=== PATIENT | female | born 1980 | race Two or more races ===

== ENCOUNTER 2018-05-29 11:32 | Emergency (ER) | payer OTHER ==
--- NOTE | 2018-05-29 12:34 | ED Physician Documentation ---
History of Present Illness - Stated complaint Stated Complaint: HIGH BP - Chief complaint Chief Complaint: Cardiac - History obtained from History obtained from: Patient - History of Present Illness Timing: Today (She had not seen a doctor for about 5 years. Previously though she has had significant elevated blood pressure readings but it was never treated. She saw a new physician last week and was told it was a bit high but she does not know what the number was. She went for her IUD changed today and it was quite elevated in the office and she was referred to the emergency department. She denies chest pain, trouble breathing, urinary complaints, pedal edema, strokelike symptoms or headache.) Review of Systems Constitutional: denies: Fever, Chills Cardiac: denies: Chest pain / pressure, Palpitations Respiratory: denies: Dyspnea, Cough GI: denies: Abdominal Pain PD PAST MEDICAL HISTORY - Present Medications Home Medications: Ambulatory Orders Medication Instructions Recorded Confirmed Sertraline [Zoloft] 25 mg PO DAILY 05/29/18 05/29/18 amLODIPine [Norvasc] 10 mg PO DAILY #30 tablet 05/29/18 - Allergies Allergies/Adverse Reactions: Allergies Allergy/AdvReac Type Severity Reaction Status Date / Time Penicillins Allergy Unknown Verified 05/29/18 11:47 PD ED PE NORMAL - Vitals Vital signs reviewed: Yes - General General: Alert and oriented X 3, No acute distress - HEENT HEENT: PERRL, EOMI - Neck Neck: Supple, no meningeal sign, No bony TTP - Cardiac Cardiac: RRR, No murmur - Respiratory Respiratory: No respiratory distress, Clear bilaterally - Abdomen Abdomen: Non tender - Extremities Extremities: No edema - Neuro Neuro: Alert and oriented X 3, Normal speech Results - Vitals Vitals: Vital Signs - 24 hr 05/29/18 05/29/18 11:42 13:18 Temperature 37.1 C Heart Rate 82 76 Respiratory 16 19 Rate Blood Pressure 195/104 H 152/102 H O2 Saturation 99 Oxygen O2 Source Room air - EKG (time done) 1310 Rate: Rate (enter#) (75) Rhythm: NSR [place]: Normal Intervals: Normal CO QRS: Normal Ischemia: Normal ST segments Computer interpretation: Agree with computer - Labs Labs: Laboratory Tests 05/29/18 05/29/18 12:50 13:00 Sodium 137 Potassium 3.6 Chloride 101 Carbon Dioxide 24 Anion Gap 12.0 BUN 9 Creatinine 0.5 Estimated GFR (MDRD) 140 Glucose 102 H Calcium 9.0 Urine Color YELLOW Urine Clarity CLOUDY Urine pH 5.5 Ur Specific [place] >=1.030 H Urine Protein NEGATIVE Urine Glucose (UA) NEGATIVE Urine Ketones NEGATIVE Urine Occult Blood MODERATE H Urine Nitrite NEGATIVE Urine Bilirubin NEGATIVE Urine Urobilinogen 0.2 (NORMAL) Ur Leukocyte Esterase NEGATIVE Ur Microscopic Review INDICATED Urine Culture Comments Not Reportable Urine HCG, Qual NEGATIVE Departure - Departure Disposition: 01 Home, Self Care Clinical Impression: Hypertension Qualifiers: Hypertension type: essential hypertension Qualified Code(s): I10 - Essential (primary) hypertension Condition: Good Record reviewed to determine appropriate education?: Yes Instructions: ED Hypertension New Begin Tx Prescriptions: amLODIPine [Norvasc] 10 mg PO DAILY #30 tablet Comments: Follow-up with your doctor in a few days to week for blood pressure recheck and to see if your tolerating the medication okay or if you need dose adjustments or a different medication. Return for new or worsening symptoms, especially chest pain, strokelike symptoms, shortness of breath.
[2018-05-29 13:15] LABS: BILIRUBIN,URINE NEGATIVE (NEGATIVE); GLUCOSE, URINE (UA) NEGATIVE (NEGATIVE); KETONES,URINE (UA) NEGATIVE (NEGATIVE); LEUKOCYTE ESTERASE, URINE NEGATIVE (NEGATIVE); NITRITE,URINE NEGATIVE (NEGATIVE); OCCULT BLOOD,URINE MODERATE (NEGATIVE); PH,URINE 5.5 PH (5.0-7.5); PROTEIN,URINE NEGATIVE (NEGATIVE); UROBILINOGEN,URINE 0.2 (NORMAL) E.U./dL (NORMAL)
[2018-05-29 13:15] LABS: CREATININE 0.5 mg/dL (0.4-1.0)
[2018-05-29 13:17] LABS: CLARITY,URINE CLOUDY (CLEAR); HCG UR QUAL NEGATIVE
[2018-05-29 13:19] VITALS: BP 152/102
[2018-05-29 13:33] LABS: AMORPHOUS SEDIMENT,UR Moderate /LPF; BACTERIA,URINE None Seen /HPF (None Seen); RBC,URINE None Seen /HPF (0-5); SQUAMOUS EPITHELIAL CELL,UR NONE SEEN (<= Few)
== END 2018-05-29 13:36 | disposition home or self-care (01) ==
LOC: ED 11:32
DX: I10 Essential (primary) hypertension (principal)
CPT/HCPCS: 36415; 80048; 81001; 81003; 81025; 87086; 93005; 99283